=== PATIENT | male | born 2000 | race Caucasian/White ===

== ENCOUNTER 2023-03-09 06:23 | Emergency (ER) | payer OTHER, SELFPAY ==
[2023-03-09 06:29] VITALS: BP 133/98; PULSE 103; RESP 20; TEMP 37.1; O2SAT 99; BMI 25.0
--- NOTE | 2023-03-09 06:29 | DI.RAD.S_ITS ---
PROCEDURE: XR CHEST 1V INDICATIONS: chest pain TECHNIQUE: One view of the chest was acquired. COMPARISON: None. FINDINGS: Surgical changes and devices: None. Lungs and pleura: Lungs are clear. No pleural effusions or pneumothorax. Mediastinum: Mediastinal contours appear normal. Heart size is normal. Bones and chest wall: No suspicious bony lesions. Overlying soft tissues appear unremarkable. IMPRESSION: No acute cardiopulmonary abnormality is seen. Approved by: Pedro Vaughan M.D. on 03/09/2023 at 11:36
[2023-03-09 06:34] VITALS: PULSE 91; RESP 17; O2SAT 98
--- NOTE | 2023-03-09 06:47 | ED_ITS ---
HPI - General Adult <Kristofer Cali DO - Last Filed: 03/12/23 18:14> General Chief complaint: Arrhythmia/Palpitations Stated complaint: heart problems Time Seen by Provider: 03/09/23 06:28 Source: patient Mode of arrival: Ambulatory Limitations: no limitations History of Present Illness HPI narrative: Patient is a 23-year-old male. No prior diagnosed medical problems. Here for evaluation of what he initially described as ?heart problems? however after further evaluation it appears that the patient this morning was having episodes of palpitations. He states that it felt like his heart was racing this morning. He was diaphoretic. No shortness of breath. His symptoms have happened on and off for the past couple weeks but when we more pronounced this morning. No abdominal pain. Does have some nausea. Also reports a slight headache. No lower extremity swelling. No recent travel. No new medications. Review of Systems <Kristofer Cali DO - Last Filed: 03/12/23 18:14> Constitutional Constitutional: Reports system reviewed and no additional complaints, except as documented Cardiovascular Cardiovascular: Reports system reviewed and no additional complaints, except as documented Respiratory Respiratory: Reports system reviewed and no additional complaints, except as documented Musculoskeletal Musculoskeletal: Reports system reviewed and no additional complaints, except as documented Integumentary/Breasts Skin/Breast: Reports system reviewed and no additional complaints, except as documented Neurologic Neurologic: Reports system reviewed and no additional complaints, except as documented Hematologic/Lymphatic On Anticoagulants: No Patient History <Kristofer Cali DO - Last Filed: 03/12/23 18:14> Social History Smoking Status: Current every day smoker Exam <Kristofer Cali DO - Last Filed: 03/12/23 18:14> Initial Vital Signs Initial Vital Signs: Vital Signs Temperature 98.7 F 03/09/23 06:29 Pulse Rate 103 H 03/09/23 06:29 Respiratory Rate 20 03/09/23 06:29 Blood Pressure 133/98 H 03/09/23 06:29 Pulse Oximetry 99 03/09/23 06:29 Oxygen Delivery Method Room Air 03/09/23 06:29 Const General: cooperative and comfortable HENMT Head: normal to inspection and normocephalic Resp Effort & Inspection: normal respiratory effort Auscultation: clear to auscultation bilaterally Cardio Rate: regular rate Rhythm: regular rhythm Neuro General: patient alert, patient awake and moves all extremities Extrem General: No edema <Lori Mccarthy MD - Last Filed: 03/09/23 18:25> Initial Vital Signs Initial Vital Signs: Vital Signs Temperature 98.7 F 03/09/23 06:29 Pulse Rate 103 H 03/09/23 06:29 Respiratory Rate 20 03/09/23 06:29 Blood Pressure 133/98 H 03/09/23 06:29 Pulse Oximetry 99 03/09/23 06:29 Oxygen Delivery Method Room Air 03/09/23 06:29 Course <Kristofer Cali DO - Last Filed: 03/12/23 18:14> Orders Ordered: ED Orders 03/09/23 06:29 XR chest 1V Stat 03/09/23 06:44 EKG-12 Lead Stat 03/09/23 06:55 Basic Metabolic Panel Stat Complete Blood Count AUTO DIFF Stat TSH [Thyroid Stimulating Hormone] Stat Troponin & CK Cardiac Panel Stat Vital Signs Vital signs: Vital Signs - 8 hr 03/09/23 06:29 03/09/23 06:34 03/09/23 07:00 Temperature 98.7 F Pulse Rate 103 H 91 H 84 Respiratory Rate 20 17 20 Blood Pressure 133/98 H Pulse Oximetry 99 98 96 Oxygen Delivery Method Room Air Room Air Room Air 03/09/23 07:00 03/09/23 07:30 03/09/23 07:30 Temperature Pulse Rate 84 Respiratory Rate 19 Blood Pressure 131/75 134/67 Pulse Oximetry 95 Oxygen Delivery Method 03/09/23 08:00 03/09/23 08:00 Temperature Pulse Rate 76 Respiratory Rate 19 Blood Pressure 137/64 Pulse Oximetry 96 Oxygen Delivery Method <Lori Mccarthy MD - Last Filed: 03/09/23 18:25> Orders Ordered: ED Orders 03/09/23 06:29 XR chest 1V Stat 03/09/23 06:44 EKG-12 Lead Stat 03/09/23 06:55 Basic Metabolic Panel Stat Complete Blood Count AUTO DIFF Stat TSH [Thyroid Stimulating Hormone] Stat Troponin & CK Cardiac Panel Stat Vital Signs Vital signs: Vital Signs - 8 hr 03/09/23 06:29 03/09/23 06:34 03/09/23 07:00 Temperature 98.7 F Pulse Rate 103 H 91 H 84 Respiratory Rate 20 17 20 Blood Pressure 133/98 H Pulse Oximetry 99 98 96 Oxygen Delivery Method Room Air Room Air Room Air 03/09/23 07:00 03/09/23 07:30 03/09/23 07:30 Temperature Pulse Rate 84 Respiratory Rate 19 Blood Pressure 131/75 134/67 Pulse Oximetry 95 Oxygen Delivery Method 03/09/23 08:00 03/09/23 08:00 Temperature Pulse Rate 76 Respiratory Rate 19 Blood Pressure 137/64 Pulse Oximetry 96 Oxygen Delivery Method Medical Decision Making <Kristofer Cali, - Last Filed: 03/12/23 18:14> Lab Data 03/09/23 06:55 03/09/23 06:55 Labs: Lab Results 03/09/23 Range/Units 06:55 WBC 6.6 (4.5-11.0) X10^3/uL RBC 5.15 (4.5-5.9) X10^6/uL Hgb 14.8 (13.5-17.5) g/dL Hct 43.4 (41-53) % MCV 84.2 (80-100) fL MCH 28.7 (26-34) PG MCHC 34.1 (30-36) % RDW 13.2 (11.6-14.8) % Plt Count 298 (150-400) X10^3/uL Neut % (Auto) 59.5 (50-75) % Lymph % (Auto) 28.3 (25-40) % Garrett % (Auto) 8.2 (3-14) % Eos % (Auto) 3.2 (2-4) % Baso % (Auto) 0.8 (0-2) % Neut # (Auto) 3900 (1195-9377) /uL Lymph # (Auto) 1900 (2948-9579) /uL Garrett # (Auto) 500 (0-900) /uL Eos # (Auto) 200 (0-450) /uL Baso # (Auto) 100 (0-100) /uL Sodium 139 (137-145) mmol/L Potassium 3.8 (3.4-5.1) mmol/L Chloride 104 (98-107) mmol/L Carbon Dioxide 25 (22-32) mmol/L BUN 18 (9-20) mg/dL Creatinine 0.79 (0.66-1.25) mg/dL Estimated GFR > 60 (>60) mL/min BUN/Creatinine Ratio 22.8 H (6-22) Glucose 98 (70-100) mg/dL Calcium 9.4 (8.4-10.2) mg/dL Total Creatine Kinase 134 (55-170) U/L Troponin I < 0.012 (0.01-0.034) ng/mL TSH 2.25 (0.47-4.68) uIU/mL ECG Data Attestation: I personally reviewed and interpreted this ECG as follows: Interpretation: Sinus rhythm Ventricular rate 82 Sinus arrhythmia Normal axis Normal QRS No ST T wave changes MDM Narrative Medical decision making narrative: EKG is unremarkable. Exam is unremarkable. He states he is still feeling some of the palpitations but it is better than what it was this morning. Chest x-ray ordered. Labs ordered. Care turned over to day provider to follow-up and disposition. <Lori Mccarthy MD - Last Filed: 03/09/23 18:25> Lab Data Labs: Lab Results 03/09/23 Range/Units 06:55 WBC 6.6 (4.5-11.0) X10^3/uL RBC 5.15 (4.5-5.9) X10^6/uL Hgb 14.8 (13.5-17.5) g/dL Hct 43.4 (41-53) % MCV 84.2 (80-100) fL MCH 28.7 (26-34) PG MCHC 34.1 (30-36) % RDW 13.2 (11.6-14.8) % Plt Count 298 (150-400) X10^3/uL Neut % (Auto) 59.5 (50-75) % Lymph % (Auto) 28.3 (25-40) % Garrett % (Auto) 8.2 (3-14) % Eos % (Auto) 3.2 (2-4) % Baso % (Auto) 0.8 (0-2) % Neut # (Auto) 3900 (4966-1991) /uL Lymph # (Auto) 1900 (3302-9447) /uL Garrett # (Auto) 500 (0-900) /uL Eos # (Auto) 200 (0-450) /uL Baso # (Auto) 100 (0-100) /uL Sodium 139 (137-145) mmol/L Potassium 3.8 (3.4-5.1) mmol/L Chloride 104 (98-107) mmol/L Carbon Dioxide 25 (22-32) mmol/L BUN 18 (9-20) mg/dL Creatinine 0.79 (0.66-1.25) mg/dL Estimated GFR > 60 (>60) mL/min BUN/Creatinine Ratio 22.8 H (6-22) Glucose 98 (70-100) mg/dL Calcium 9.4 (8.4-10.2) mg/dL Total Creatine Kinase 134 (55-170) U/L Troponin I < 0.012 (0.01-0.034) ng/mL TSH 2.25 (0.47-4.68) uIU/mL MDM Narrative Medical decision making narrative: EKG is unremarkable. Exam is unremarkable. He states he is still feeling some of the palpitations but it is better than what it was this morning. Chest x-ray ordered. Labs ordered. Care turned over to day provider to follow-up and disposition. Laboratory work and imaging unremarkable. Patient was on cardiac catheterization technician, no events noted. Patient and significant other informed of results at bedside. Patient states that he has a primary care appointment in 1 week. I stated that I felt the patient may benefit from cardiac Holter monitoring and to discuss the possibility with his primary care physician. ED return precautions discussed at bedside. Patient expressed understanding of the plan and is in agreement at this time. All questions answered at the time of discharge. Discharge Plan Departure Patient Disposition: Home Clinical Impression: Palpitations Instructions: DI for Arrhythmias Activity Restrictions/Additional Instructions: Make sure that you keep your primary care doctor's appointment as previously scheduled. I would recommend asking if a heart monitor is right for you to see if it captures the episodes that you were experiencing. Otherwise your cell counts, electrolytes, kidney function was all normal. Stand Alone Forms: Patient Portal/API
[2023-03-09 07:00] VITALS: BP 131/75; PULSE 84; RESP 20; O2SAT 96
[2023-03-09 07:26] LABS: Add Manual Diff / Slide Review NO; Basophils Absolute Auto 100 /uL (0-100); Basophils Percent Auto 0.8 % (0-2); Eosinophils Absolute Auto 200 /uL (0-450); Eosinophils Percent Auto 3.2 % (2-4); Hematocrit 43.4 % (41-53); Hemoglobin 14.8 g/dL (13.5-17.5); Lymphocytes Absolute Auto 1900 /uL (1100-4500); Lymphocytes Percent Auto 28.3 % (25-40); Mean Corpuscular HGB Conc 34.1 % (30-36); Mean Corpuscular Hemoglobin 28.7 PG (26-34); Mean Corpuscular Volume 84.2 fL (80-100); Monocytes Absolute Auto 500 /uL (0-900); Monocytes Percent Auto 8.2 % (3-14); Neutrophils Absolute Auto 3900 /uL (1500-7000); Neutrophils Percent Auto 59.5 % (50-75); Platelet Count 298 X10^3/uL (150-400); Red Blood Cell Count 5.15 X10^6/uL (4.5-5.9); Red Cell Distribution Width 13.2 % (11.6-14.8); White Blood Cell Count 6.6 X10^3/uL (4.5-11.0)
[2023-03-09 07:30] VITALS: BP 134/67; PULSE 84; RESP 19; O2SAT 95
[2023-03-09 07:38] LABS: BUN Creatinine Ratio 22.8 (6-22); Blood Urea Nitrogen 18 mg/dL (9-20); Calcium 9.4 mg/dL (8.4-10.2); Carbon Dioxide 25 mmol/L (22-32); Chloride 104 mmol/L (98-107); Creatine Kinase 134 U/L (55-170); Estimated Glomerular Filt Rate > 60 mL/min (>60); Glucose 98 mg/dL (70-100); HEMOLYSIS 26 (0-50); Potassium 3.8 mmol/L (3.4-5.1); Sodium 139 mmol/L (137-145)
[2023-03-09 07:50] LABS: Troponin I < 0.012 ng/mL (0.01-0.034)
[2023-03-09 08:00] VITALS: BP 137/64; PULSE 76; RESP 19; O2SAT 96
[2023-03-09 08:18] LABS: Thyroid Stimulating Hormone 2.25 uIU/mL (0.47-4.68)
[2023-03-09 08:30] VITALS: BP 133/62; PULSE 69; RESP 19; O2SAT 96
== END 2023-03-09 08:44 | disposition home or self-care (01) ==
PROVIDERS: Emergency Medicine; Emergency Provider Emergency Medicine
DX: R00.2 Palpitations (principal)
CPT/HCPCS: 36415; 71045; 80048; 82550; 84443; 84484; 85025; 93005; 93010; 99283; 99284

== ENCOUNTER → 2023-04-08 15:11 | Outpatient (CLI) | payer OTHER, SELFPAY | LOC: CAR 15:13 | PROVIDERS: PCP Family Medicine; Referring Provider Family Medicine; Visit Provider Family Medicine | DX: R00.2 Palpitations (principal) | CPT/HCPCS: 93242 ==